=== PATIENT | female | born 1960 | race Caucasian/White ===

== ENCOUNTER 2018-03-09 14:17 | Observation (INO) ==
[2018-03-09] MEDS ORDERED: *HR* OxyCODONE/APAP 5/325 TABLET PO ONE (16:55)
[2018-03-09] MEDS ORDERED: Naloxone 0.4 MG/ML INJ IVP PRN (16:59)
[2018-03-09] MEDS: *HR* FentaNYL (PF) 100 MCG/2 ML VIAL IVP ONE (17:29)
[2018-03-09 17:57] LABS: Basophils % 0.3 %; Eosinophils # 0.1 K/mcL (0.0-0.6); Eosinophils % 1.2 %; Hematocrit 25.5 % (35.3-44.9); Hemoglobin 8.4 g/dL (11.5-15.4); Immature Granulocytes % 0.5 % (0-4); Lymphocytes # 1.9 K/mcL (0.6-4.6); Lymphocytes % 21.9 %; Mean Corpuscular HGB Conc 32.9 g/dL (31.6-35.5); Mean Corpuscular Hemoglobin 30.2 pg (28.0-33.3); Mean Corpuscular Volume 91.7 fL (83.0-100.0); Mean Platelet Volume 10.2 fL (9.4-12.4); Monocytes # 0.5 K/mcL (0.0-1.3); Monocytes % 5.7 %; Neutrophils # 6.2 K/mcL (1.6-8.9); Platelet Count 254 K/mcL (140-400); Red Blood Count 2.78 M/mcL (3.82-4.97); Red Cell Distribution Width 13.3 % (11.5-14.5); Segmented Neutrophils % 70.4 %
[2018-03-09 18:04] LABS: INR 1.1; Prothrombin Time 11.9 Seconds (9.4-12.1)
[2018-03-09 18:21] LABS: Alanine Aminotransferase 11 Units/L (7-52); Albumin 3.1 g/dL (3.5-5.7); Albumin/Globulin Ratio 1.9 (1.1-2.2); Alkaline Phosphatase 24 Units/L (34-104); Aspartate Amino Transferase 12 Units/L (13-39); BUN/Creatinine Ratio 51 (6-26); Bilirubin,Total 0.4 mg/dL (0.3-1.0); Blood Urea Nitrogen 27 mg/dL (6-20); Calcium 7.7 mg/dL (8.6-10.3); Carbon Dioxide 22 mEq/L (23-29); Chloride 115 mEq/L (98-107); Globulin 1.6 g/dL (2.4-3.5); Glucose 92 mg/dL (70-105); Magnesium 1.8 mg/dL (1.6-2.6); Osmolality,Calculated 297 (280-300); Potassium 3.7 mEq/L (3.5-5.1); Sodium 141 mEq/L (136-145); Total Protein 4.7 g/dL (6.4-8.9); eGFR For African Americans > 60 (> 60); eGFR For Non-African Americans > 60 (> 60)
[2018-03-09] MEDS ORDERED: *HR* FentaNYL (PF) 100 MCG/2 ML VIAL ONE (18:49)
[2018-03-09] MEDS ORDERED: *HR* Midazolam HCl 5 MG/5 ML VIAL IVP ONE ×2 (18:49→19:35)
[2018-03-09] MEDS: 0.9 % Sodium Chloride 500 ML IVC SCH (18:57)
[2018-03-09] MEDS ORDERED: *HR* Midazolam HCl 2 MG/2 ML VIAL IVP ONE (19:31)
[2018-03-09] MEDS ORDERED: Tetracaine/Benzocaine/Butamben 200MG/SPRAY (100SPY/BOT) MM ONE (19:31)
[2018-03-09] MEDS ORDERED: Simethicone 40 MG/0.6 ML MLS IR ONE (19:31)
[2018-03-09] MEDS ORDERED: *HR* FentaNYL (PF) 100 MCG/2 ML VIAL IVP ONE (19:31)
--- NOTE | 2018-03-09 19:31 | Pre-Sedation Evaluation ---
Pre-sedation evaluation - Pre-sedation checklist Date of procedure: 03/09/18 Recent Vitals: Last Vital Signs Temp 98.3 F 03/09/18 18:55 Pulse 91 03/09/18 18:57 Resp 18 03/09/18 18:57 BP 127/80 03/09/18 18:57 Pulse Ox 97 03/09/18 18:57 ASA Classification *see protocol: CLASS II-Mild systemic disease Plan of Care: Pt appropriate candidate for procedure/moderate/conscious sedation , Risks/benefits of procedure/sedation discussed w/ patient/family
[2018-03-09] MEDS ORDERED: SODIUM CHLORIDE/NAHCO3/KCL/PEG 4,000 ML SOLN.RECON PO ONE (20:09)
[2018-03-09] MEDS ORDERED: Acetaminophen IV 500 MG/50 ML INFUS..BTL IVPB ONE (20:45)
[2018-03-09] MEDS: 0.9 % Sodium Chloride 1,000 ML IVC SCH (21:21)
[2018-03-09] MEDS ORDERED: *HR* Promethazine 25 MG/ML VIAL IVP PRN (22:35)
--- NOTE | 2018-03-09 23:39 | Internal Med History&Physical ---
Date of Encounter: 03/09/18 Time of Encounter: 23:37 Internal Medicine - H&P: HPI Chief complaint: black stools History of present illness: Ms. Meza is a 57 year old female with history of migraines who presents to complain of black stool. Patient notes she had a episode of loss of consciousness. Patient notes prior to the episode she denied chest pain, shortness of breath or palpitations. Patient notes that throughout the day she has been having black stool. Patient also notes some epigastric discomfort. Patient notes that she has been taking Excedrin for history of migraines diagnosed approximately 2 months ago. At this time patient denies chest pain shortness breath or palpitations. Patient complains of headache but this is similar to her prior migraines. This time he denies visual disturbance or focal weakness. She denies fever, chills or rigors. Patient notes some black stool. At this time she denies rectal pain. Patient to be admitted for further evaluation. Patient denies any other complaint Past Med Surg Social Fam HX - Past Medical History Medical history: GERD, migraine Psychiatric history: no psych history - Social History Smoking Status: Current some day smoker Packs per day: 0.25 Smokeless Tobacco Status: No Alcohol use: rarely Drug use: none - Family History Mother Living Status: Age at : 63 Cause of : Alzheimers Father Living Status: Still Living Hx Family Cardiac Disorders: No Hx Family Respiratory Disorders: Yes (COPD) Hx Family Cancer: Yes (Breast cancer) Internal Medicine - H&P: Meds 3 Allergy/AdvReac Type Severity Reaction Status Date / Time morphine AdvReac Hallucinati Verified 03/09/18 10:36 ng All Systems PM: A 10-system review of systems was performed and is negative for pertinent findings except as documented above in the HPI. Review of systems: All systems reviewed and negative except as mentioned in history of present illness - Constitutional Vitals: Temp Pulse Resp BP Pulse Ox 98.2 F 84 15 112/73 99 03/09/18 20:48 03/09/18 20:48 03/09/18 20:48 03/09/18 20:48 03/09/18 20:48 Vital signs reviewed above Gen.: Able speak in full sentences, no conversational dyspnea HEENT: Stitches noted left-sided, normocephalic, electrical Zantac, there is no scleral icterus Neck: No JVD appended palpation, full range of motion Heart: Normal S1-S2 Lungs: Clear Abdomen: Soft, depressible, nontender, nondistended, positive bowel sounds, no guarding, no rigidity Musculoskeletal: Patient moves all 4 extremities freely, pending the palpation of large joints Neuro: Nonfocal patient moves all 4 extremities freely, no pain with palpation of large joints Psychiatric: Normal affect Skin: Intact Internal Med - H&P Results - Labs CBC & Chem 7: 03/09/18 17:35 03/09/18 17:35 Labs: Short CBC 03/09/18 Range/Units 17:35 WBC 8.8 (4.3-11.1) K/mcL Hgb 8.4 L (11.5-15.4) g/dL Hct 25.5 L (35.3-44.9) % Plt Count 254 (140-400) K/mcL Neutrophils # 6.2 (1.6-8.9) K/mcL BMP 03/09/18 17:35 Sodium 141 Potassium 3.7 Chloride 115 H Carbon Dioxide 22 L BUN 27 H Creatinine 0.53 L Glucose 92 Calcium 7.7 L Liver Function 03/09/18 Range/Units 17:35 Total Bilirubin 0.4 (0.3-1.0) mg/dL AST 12 L (13-39) Units/L ALT 11 (7-52) Units/L Alkaline Phosphatase 24 L (34-104) Units/L Albumin 3.1 L (3.5-5.7) g/dL - Assessment and plan (1) Anemia Current Visit: No Status: Acute Assessment and plan: Black stool Patient status post EGD shows evidence of esophagitis, gastritis Protonix twice a day Possible colonoscopy in the a.m. Appreciate GI consultation Qualifiers: Anemia type: other cause Other causes of anemia: acute posthemorrhagic Qualified Code(s): D62 - Acute posthemorrhagic anemia (2) Syncope Current Visit: No Status: Acute Assessment and plan: Episodes of loss of causes in the setting of anemia, black stool gastrointestinal bleed Patient denied any prodromal symptoms, patient denies chest pain, Records from outside hospital to be obtained Repeat CBC, trend troponin Neuro checks Qualifiers: Syncope type: unspecified Qualified Code(s): R55 - Syncope and collapse (3) Migraine Current Visit: Yes Status: Acute Assessment and plan: Previous history of migraine No NSAIDs at this time Patient will require PCP follow-up Qualifiers: Qualified Code(s): G43.909 - Migraine, unspecified, not intractable, without status migrainosus (4) DVT prophylaxis Current Visit: Yes Status: Acute Assessment and plan: SCD's - Time Spent With Patient Total time spent is greater than 50% in coordination of care (as documented) at patient's floor/unit and/or counseling patient:
[2018-03-10 01:07] LABS: Basophils % 0.3 %; Eosinophils # 0.2 K/mcL (0.0-0.6); Eosinophils % 2.2 %; Hematocrit 23.5 % (35.3-44.9); Hemoglobin 7.4 g/dL (11.5-15.4); Immature Granulocytes % 0.4 % (0-4); Lymphocytes # 1.2 K/mcL (0.6-4.6); Lymphocytes % 15.5 %; Mean Corpuscular HGB Conc 31.5 g/dL (31.6-35.5); Mean Corpuscular Volume 92.2 fL (83.0-100.0); Mean Platelet Volume 10.5 fL (9.4-12.4); Monocytes # 0.5 K/mcL (0.0-1.3); Monocytes % 6.2 %; Neutrophils # 5.6 K/mcL (1.6-8.9); Platelet Count 202 K/mcL (140-400); Red Blood Count 2.55 M/mcL (3.82-4.97); Red Cell Distribution Width 13.4 % (11.5-14.5); Segmented Neutrophils % 75.4 %
[2018-03-10 01:26] LABS: Alanine Aminotransferase 11 Units/L (7-52); Albumin 2.9 g/dL (3.5-5.7); Albumin/Globulin Ratio 1.8 (1.1-2.2); Alkaline Phosphatase 21 Units/L (34-104); Aspartate Amino Transferase 13 Units/L (13-39); BUN/Creatinine Ratio 37 (6-26); Bilirubin,Total 0.3 mg/dL (0.3-1.0); Blood Urea Nitrogen 23 mg/dL (6-20); Calcium 7.6 mg/dL (8.6-10.3); Carbon Dioxide 20 mEq/L (23-29); Chloride 115 mEq/L (98-107); Chol/HDL Ratio 2.9 (0-4.9); Cholesterol 107 mg/dL (< 200); Globulin 1.6 g/dL (2.4-3.5); Glucose 96 mg/dL (70-105); HDL Cholesterol 37 mg/dL (40-59); LDL Cholesterol,Calculated 47 mg/dL (0-99); Osmolality,Calculated 296 (280-300); Potassium 3.8 mEq/L (3.5-5.1); Sodium 141 mEq/L (136-145); Total Protein 4.5 g/dL (6.4-8.9); Triglycerides 114 mg/dL (< 150); eGFR For African Americans > 60 (> 60); eGFR For Non-African Americans > 60 (> 60)
[2018-03-10] MEDS: Pantoprazole 40 MG VIAL IVP SCH ×2 (05:27→18:03)
[2018-03-10] MEDS ORDERED: 0.9 % Sodium Chloride 250 ML ONE (07:55)
--- NOTE | 2018-03-10 09:38 | Internal Med Progress Note ---
<Gagan Vallejo - Last Filed: 03/10/18 11:48> Date of Encounter: 03/10/18 Time of Encounter: 09:38 - Assessment and plan (1) Syncope Current Visit: No Status: Inactive Assessment and plan: Episodes of loss of causes in the setting of anemia, black stool gastrointestinal bleed and lightheadedness and feeling weak. Patient hit her head with scalp laceration on the left scalp - Head CT performed at [place] was without any acute intracranial changes - Hemoglobin dropped from 9-7.4 overnight Suspect the setting of acute blood loss anemia. - Currently clinically stable. Plan : - Neuro checks - Monitor hemoglobin - Colonoscopy for further evaluation. Qualifiers: Syncope type: unspecified Qualified Code(s): R55 - Syncope and collapse (2) Anemia Current Visit: No Status: Inactive Assessment and plan: Black stool Patient status post EGD shows evidence of large hiatal hernia, esophagitis, gastritis Protonix twice a day - Hemoglobin 7.4, currently receiving 1 unit PRBC transfusion Patient scheduled for colonoscopy this afternoon Appreciate GI consultation Qualifiers: Anemia type: other cause Other causes of anemia: acute posthemorrhagic Qualified Code(s): D62 - Acute posthemorrhagic anemia (3) Migraine Current Visit: Yes Status: Acute Assessment and plan: Previous history of migraine, tension headaches No NSAIDs at this time Patient will require PCP follow-up - Consider low-dose amitriptyline as headaches are more likely tension headaches given description. (4) Large hiatal hernia Current Visit: Yes Status: Acute Assessment and plan: Large hiatal hernia seen on EGD - Patient knows of previous diagnosis and states she had complications in the past. (5) Esophagitis Current Visit: Yes Status: Acute Assessment and plan: Seen on EGD - Continue Protonix twice a day - Consider Carafate will discuss with gastroenterology (6) DVT prophylaxis Current Visit: Yes Status: Acute Assessment and plan: SCD's (7) Gastritis Current Visit: Yes Status: Acute Assessment and plan: Seen on EGD. - Continue Protonix twice a day -We will discuss Carafate with gastroenterology - Time Spent With Patient Total time spent is greater than 50% in coordination of care (as documented) at patient's floor/unit and/or counseling patient: - Subjective Interval history: Mrs. Meza 57-year-old female seen and evaluated patient bedside this morning. She had EGD performed last evening with findings of esophagitis and gastritis and large hiatal hernia. In discussion this morning she is doing well denies any abdominal pain, nausea vomiting diarrhea constipation, fevers chills or sweating. Denies any syncopal or near syncopal events denies any lightheadedness or dizziness. She states that prior to presenting to the emergency department she became very lightheaded was having dark tarry stools passed out and hit her left side of her head resulting in a laceration. She is brought to the emergency department received jessy in her head and underwent head CT which was without significant findings. She was then transferred to [facility] and admitted to the hospital service. She underwent EGD with the findings as mentioned above. In started on PPI. Today she denies any new symptoms or concerns overnight. She wanted discussion regarding what findings were there may have caused it. She states that she stopped taking her PPI with a history of gastritis roughly a year ago and started having headaches after being told she had the flu in November. For the last 2 weeks she took Excedrin Migraine twice a day and started having epigastric discomfort. She states she aware of her large hiatal hernia because years ago she had complications and underwent emergent surgery with revision. She denies any complications or recent abdominal surgeries. - Constitutional Vitals: Temp Pulse Resp BP Pulse Ox 98.1 F 90 16 124/85 98 03/10/18 09:02 03/10/18 09:02 03/10/18 09:02 03/10/18 09:02 03/10/18 09:02 Exam: General: Patient alert, awake, oriented 3, interactive, in no acute distress HEENT: Normocephalic, 1cm lac on left parital scalp with 3 jessy, no drainage or erythema. pupils equal reactive to light, moist mucous membranes, neck supple trachea midline no palpable lymphadenopathy, no thyromegaly. Chest: Symmetric bilateral correlating with respiratory effort, effort nonlabored. Cardiac: Regular rate and rhythm, positive S1 and S2. no bruits appreciated bilateral carotids, Radial pulses 2+ bilateral, posterior tibial and dorsal pedal pulses 2+ bilateral. Respiratory: Clear to auscultation all lung cohn Abdomen: Soft, nontender, positive bowel sounds, no palpable masses appreciated on examination Extremities: Symmetric bilateral, bilateral lower extremities without erythema or edema patient moving all 4 extremities spontaneously. Neurologic: No focal deficits appreciated on examination. Face symmetric, muscle strength symmetric bilateral upper and lower extremities. Internal Medicine: Result - Labs CBC & Chem 7: 03/10/18 00:11 03/10/18 00:11 Labs: Short CBC 03/09/18 03/10/18 Range/Units 17:35 00:11 WBC 8.8 7.4 (4.3-11.1) K/mcL Hgb 8.4 L 7.4 L (11.5-15.4) g/dL Hct 25.5 L 23.5 L (35.3-44.9) % Plt Count 254 202 (140-400) K/mcL Neutrophils # 6.2 5.6 (1.6-8.9) K/mcL BMP 03/09/18 03/10/18 17:35 00:11 Sodium 141 141 Potassium 3.7 3.8 Chloride 115 H 115 H Carbon Dioxide 22 L 20 L BUN 27 H 23 H Creatinine 0.53 L 0.62 Glucose 92 96 Calcium 7.7 L 7.6 L Cardiac Enzymes 03/10/18 Range/Units 00:11 Troponin I < 0.03 (< 0.04) ng/mL Liver Function 03/09/18 03/10/18 Range/Units 17:35 00:11 Total Bilirubin 0.4 0.3 (0.3-1.0) mg/dL AST 12 L 13 (13-39) Units/L ALT 11 11 (7-52) Units/L Alkaline Phosphatase 24 L 21 L (34-104) Units/L Albumin 3.1 L 2.9 L (3.5-5.7) g/dL - ABG Interpretation ABG results: PT/INR, D-dimer PT 11.9 Seconds (9.4-12.1) 03/09/18 17:35 Consult Discharge Plan - Plan Referrals: Frank Clancy MD [Primary Care Provider] - <Krzysztof Castro - Last Filed: 03/10/18 16:09> Date of Encounter: 03/10/18 - Assessment and plan (1) Syncope Current Visit: No Status: Inactive Qualifiers: Syncope type: unspecified Qualified Code(s): R55 - Syncope and collapse (2) Anemia Current Visit: No Status: Inactive Qualifiers: Anemia type: other cause Other causes of anemia: acute posthemorrhagic Qualified Code(s): D62 - Acute posthemorrhagic anemia (3) Migraine Current Visit: Yes Status: Acute (4) DVT prophylaxis Current Visit: Yes Status: Acute (5) Large hiatal hernia Current Visit: Yes Status: Acute (6) Esophagitis Current Visit: Yes Status: Acute (7) Gastritis Current Visit: Yes Status: Acute Qualifiers: Gastritis type: unspecified gastritis Chronicity: unspecified Gastritis bleeding: without bleeding Qualified Code(s): K29.70 - Gastritis, unspecified , without bleeding - Time Spent With Patient Total time spent is greater than 50% in coordination of care (as documented) at patient's floor/unit and/or counseling patient: - Constitutional Vitals: Temp Pulse Resp BP Pulse Ox 98.2 F 82 16 106/68 96 03/10/18 14:36 03/10/18 14:36 03/10/18 14:36 03/10/18 14:36 03/10/18 14:36 Internal Medicine: Result - Labs CBC & Chem 7: 03/10/18 14:44 03/10/18 00:11 Labs: Short CBC 03/09/18 03/10/18 03/10/18 Range/Units 17:35 00:11 14:44 WBC 8.8 7.4 (4.3-11.1) K/mcL Hgb 8.4 L 7.4 L 7.8 L (11.5-15.4) g/dL Hct 25.5 L 23.5 L 23.9 L (35.3-44.9) % Plt Count 254 202 (140-400) K/mcL Neutrophils # 6.2 5.6 (1.6-8.9) K/mcL BMP 03/09/18 03/10/18 17:35 00:11 Sodium 141 141 Potassium 3.7 3.8 Chloride 115 H 115 H Carbon Dioxide 22 L 20 L BUN 27 H 23 H Creatinine 0.53 L 0.62 Glucose 92 96 Calcium 7.7 L 7.6 L Cardiac Enzymes 03/10/18 Range/Units 00:11 Troponin I < 0.03 (< 0.04) ng/mL Liver Function 03/09/18 03/10/18 Range/Units 17:35 00:11 Total Bilirubin 0.4 0.3 (0.3-1.0) mg/dL AST 12 L 13 (13-39) Units/L ALT 11 11 (7-52) Units/L Alkaline Phosphatase 24 L 21 L (34-104) Units/L Albumin 3.1 L 2.9 L (3.5-5.7) g/dL - ABG Interpretation ABG results: PT/INR, D-dimer PT 11.9 Seconds (9.4-12.1) 03/09/18 17:35 - Attending Attestation Syncopal episode secondary to symptomatic anemia/due to upper GI bleed, acute gastritis and acute esophagitis Status post 1 unit of blood Protonix IV Recheck H&H tonight, CBC in the morning consider further transfusions I examined this patient and my medical decision-making was reviewed with the Resident Physician. I agree with the documented findings, disposition and treatment plan as described except to the extent set forth below.
--- NOTE | 2018-03-10 12:03 | Gastroenterology Consult Note ---
<ReichDanny zavala Joie - Last Filed: 03/10/18 12:01> Date of Encounter: 03/10/18 Time of Encounter: 10:20 - Assessment and plan (1) Anemia Current Visit: Yes Status: Acute Assessment and plan: Hgb on admission was 9.1 and this AM Hgb 7.4. EGD completed yesterday, no source of bleeding noted. Plan for colonoscopy today. Qualifiers: Anemia type: unspecified type Qualified Code(s): D64.9 - Anemia, unspecified (2) Esophagitis Current Visit: Yes Status: Acute Assessment and plan: LA Grade D reflux esophagitis noted on EGD. Recommend BID PPI and Carafate liquid TID. Repeat EGD in 2 months. Follow up in GI office in 4 weeks. Patient educated regarding lifestyle modifications including: (1) avoidance of foods that may precipitate reflux (eg, coffee, alcohol, chocolate, fatty foods) . (2) avoidance of acidic foods that may precipitate heartburn (eg, citrus, carbonated drinks, spicy foods). (3) adoption of behaviors that may reduce esophageal acid exposure (see weight loss, smoking cessation, raising the head of the bed, and avoiding recumbency for 2-3 hours after meals). (3) Large hiatal hernia Current Visit: Yes Status: Acute (4) Gastritis Current Visit: Yes Status: Acute Qualifiers: Gastritis type: unspecified gastritis Chronicity: unspecified Gastritis bleeding: without bleeding Qualified Code(s): K29.70 - Gastritis, unspecified , without bleeding - Time Spent With Patient Total time spent is greater than 50% in coordination of care (as documented) at patient's floor/unit and/or counseling patient: GI History of Present Illness - Data of Consult Patient: new to practice Consult date: 03/10/18 Requesting Physician: Krzysztof Castro - Consult Narrative Reason for consult: melena History of present illness: Ms. Meza is a 57 year old female with PMHx of GERD and migraines who presented to the ED with complaints of black stool and syncopal episode. She reports having black stool that started the day prior to admission. Hgb on admission was 9.1 and this AM Hgb 7.4. She denies fever, chills, chest pain, shortness of breath, rectal pain, hematochezia. She complains of epigastric pain , and has been taking Excedrin for her migraines for the past 2 months. Procedures: None NSAIDs: Excedrin Anticoagulation: None Past Med Surg Social Fam HX - Past Medical History Medical history: GERD, migraine Psychiatric history: no psych history - Social History Smoking Status: Current some day smoker Packs per day: 0.25 Smokeless Tobacco Status: No Alcohol use: rarely Drug use: none - Family History Mother Living Status: Age at : 63 Cause of : Alzheimers Father Living Status: Still Living Hx Family Cardiac Disorders: No Hx Family Respiratory Disorders: Yes (COPD) Hx Family Cancer: Yes (Breast cancer) - Gastrointestinal Gastrointestinal: Present: as per HPI - Constitutional Constitutional: as per HPI - EENT Eyes: as per HPI Ears: Present: as per HPI Nose, mouth and throat: Present: as per HPI - Cardiovascular Cardiovascular ROS: Present: as per HPI - Respiratory Respiratory IM: Present: as per HPI - Genitourinary Genitourinary: Absent: change in color, Urinary frequency - Neurological ROS Neurological GI: Present: as per HPI - Hematologic/Lymphatic Hematologic/Lymphatic pediatric: Present: as per HPI - Musculoskeletal Musculoskeletal ROS GI: Present: as per HPI - Integumentary Integumentary GI: Present: as per HPI - Psychiatric ROS Psychiatric GI: Present: as per HPI - Endocrine Endocrine IM: Present: as per HPI - Constitutional Vitals: Temp Pulse Resp BP Pulse Ox 98.2 F 92 16 123/83 99 03/10/18 11:39 03/10/18 11:39 03/10/18 11:39 03/10/18 11:39 03/10/18 11:39 General appearance: Present: cooperative, A&O X 3, no acute distress, answers questions appropriately - Head Head exam: Present: atraumatic, normocephalic - Eye Eye exam: Present: normal appearance, sclera anicteric - ENT ENT exam: Present: mucous membranes dry - Neck Neck exam general surgery: Present: normal inspection, trachea midline - Respiratory Respiratory exam: Present: CTAB. Absent: rales, rhonchi - Cardiovascular Cardiovascular exam: Present: RRR, +S1, +S2 - GI/Abdominal GI/Abdominal exam: Present: soft, no peritoneal signs. Absent: distended, firm , guarding, tenderness - Rectal Rectal exam: Present: deferred - Extremities Exam Extremities exam: Present: warm - Neurological Exam Neurological exam: Present: no focal deficits - Psychiatric Psychiatric exam: Present: normal affect, normal mood - Skin Skin exam: Present: dry, intact, normal color, warm Results - Labs CBC & Chem 7: 03/10/18 00:11 03/10/18 00:11 Labs: Last Result Calcium 7.6 mg/dL (8.6-10.3) L 03/10/18 00:11 Troponin I < 0.03 ng/mL (< 0.04) 03/10/18 00:11 Triglycerides 114 mg/dL (< 150) 03/10/18 00:11 Entire Visit Hgb 7.4 g/dL (11.5-15.4) L 03/10/18 00:11 Hct 23.5 % (35.3-44.9) L 03/10/18 00:11 PT 11.9 Seconds (9.4-12.1) 03/09/18 17:35 Total Bilirubin 0.3 mg/dL (0.3-1.0) 03/10/18 00:11 AST 13 Units/L (13-39) 03/10/18 00:11 ALT 11 Units/L (7-52) 03/10/18 00:11 - ABG ABG results: PT/INR, D-dimer PT 11.9 Seconds (9.4-12.1) 03/09/18 17:35 Consult Discharge Plan - Plan Referrals: Frank Clancy MD [Primary Care Provider] - <James Banks - Last Filed: 03/10/18 23:44> Date of Encounter: 03/10/18 Time of Encounter: 13:30 - Time Spent With Patient Total time spent is greater than 50% in coordination of care (as documented) at patient's floor/unit and/or counseling patient: GI History of Present Illness - Data of Consult Requesting Physician: Krzysztof Castro - Consult Narrative History of present illness: Ms. Meza is a 57 year old female - Constitutional Vitals: Temp Pulse Resp BP Pulse Ox 97.8 F 92 16 104/68 98 03/10/18 19:45 03/10/18 19:45 03/10/18 19:45 03/10/18 19:45 03/10/18 19:45 Results - Labs CBC & Chem 7: 03/10/18 22:02 03/10/18 00:11 Labs: Last Result Calcium 7.6 mg/dL (8.6-10.3) L 03/10/18 00:11 Troponin I < 0.03 ng/mL (< 0.04) 03/10/18 00:11 Triglycerides 114 mg/dL (< 150) 03/10/18 00:11 Entire Visit Hgb 7.9 g/dL (11.5-15.4) L 03/10/18 22:02 Hct 23.7 % (35.3-44.9) L 03/10/18 22:02 PT 11.9 Seconds (9.4-12.1) 03/09/18 17:35 Total Bilirubin 0.3 mg/dL (0.3-1.0) 03/10/18 00:11 AST 13 Units/L (13-39) 03/10/18 00:11 ALT 11 Units/L (7-52) 03/10/18 00:11 - ABG ABG results: PT/INR, D-dimer PT 11.9 Seconds (9.4-12.1) 03/09/18 17:35 - Attending Attestation I have personally performed a face to face evaluation on this patient. I have reviewed and agree with the care plan. History and Exam by me shows: Pt seen. Pt with melena with anemia. Takes excedrin. EGD with erosive esophagitis Rec: colon today
[2018-03-10] MEDS ORDERED: *HR* FentaNYL (PF) 100 MCG/2 ML VIAL ONE (13:15)
[2018-03-10] MEDS ORDERED: *HR* Midazolam HCl 5 MG/5 ML VIAL IVP ONE ×2 (13:15→13:46)
[2018-03-10] MEDS ORDERED: Simethicone 40 MG/0.6 ML MLS IR ONE (13:46)
[2018-03-10] MEDS ORDERED: *HR* FentaNYL (PF) 100 MCG/2 ML VIAL IVP ONE (13:46)
[2018-03-10] MEDS: *HR* FentaNYL (PF) 100 MCG/2 ML VIAL IVP ONE (13:59)
[2018-03-10] MEDS: 0.9 % Sodium Chloride 500 ML IVC SCH (14:32)
[2018-03-10 15:12] LABS: Hematocrit 23.9 % (35.3-44.9); Hemoglobin 7.8 g/dL (11.5-15.4)
[2018-03-10] MEDS: traMADol 50 MG TABLET PO PRN (19:48)
[2018-03-10] MEDS: 0.9 % Sodium Chloride 1,000 ML IVC SCH (20:55)
[2018-03-10 22:11] LABS: Hematocrit 23.7 % (35.3-44.9); Hemoglobin 7.9 g/dL (11.5-15.4)
--- NOTE | 2018-03-10 23:22 | Event Note ---
Date of Encounter: 03/10/18 Time of Encounter: 23:10 Alerted by patient's nurse the patient had received 1 unit of PRBCs today and H& H was redrawn and found to be 7.9. Patient's Hgb 9.1 on admission, 8.4 on 03/09 , 7.4 on 03/10 and 7.8 after PRBCs on 03/10. Colonoscopy performed today showed gastrointestinal hemorrhage, melena, and diverticulosis of large intestine without perforation or abscess without bleeding. Timed H&H ordered to began at 02:00 on 03/11. 2 units PRBCs ordered d/t pts. Hgb <8.0. 20 mg of IVP lasix ordered to be administered one time after each unit of PRBCs w/order to monitor pt. for peripheral edema. Will continue to monitor pts. H/H x4.
[2018-03-11] MEDS ORDERED: 0.9 % Sodium Chloride 250 ML ONE ×2 (01:49→09:00)
[2018-03-11 02:05] LABS: Hematocrit 23.4 % (35.3-44.9); Hemoglobin 7.5 g/dL (11.5-15.4); Immature Granulocytes % 0.3 % (0-4); Lymphocytes % 25.4 %; Mean Corpuscular HGB Conc 32.1 g/dL (31.6-35.5); Mean Corpuscular Volume 90.3 fL (83.0-100.0); Mean Platelet Volume 10.3 fL (9.4-12.4); Platelet Count 204 K/mcL (140-400); Red Blood Count 2.59 M/mcL (3.82-4.97); Red Cell Distribution Width 13.3 % (11.5-14.5)
[2018-03-11 02:06] LABS: Basophils % 0.5 %; Eosinophils # 0.2 K/mcL (0.0-0.6); Eosinophils % 4.1 %; Lymphocytes # 1.5 K/mcL (0.6-4.6); Monocytes # 0.3 K/mcL (0.0-1.3); Monocytes % 5.7 %; Neutrophils # 3.7 K/mcL (1.6-8.9)
[2018-03-11 02:26] LABS: Alanine Aminotransferase 10 Units/L (7-52); Albumin 2.7 g/dL (3.5-5.7); Albumin/Globulin Ratio 1.8 (1.1-2.2); Alkaline Phosphatase 23 Units/L (34-104); Aspartate Amino Transferase 11 Units/L (13-39); BUN/Creatinine Ratio 22 (6-26); Bilirubin,Total 0.2 mg/dL (0.3-1.0); Blood Urea Nitrogen 11 mg/dL (6-20); Calcium 7.6 mg/dL (8.6-10.3); Carbon Dioxide 24 mEq/L (23-29); Chloride 114 mEq/L (98-107); Globulin 1.5 g/dL (2.4-3.5); Glucose 89 mg/dL (70-105); Osmolality,Calculated 291 (280-300); Potassium 3.9 mEq/L (3.5-5.1); Sodium 141 mEq/L (136-145); Total Protein 4.2 g/dL (6.4-8.9); eGFR For African Americans > 60 (> 60); eGFR For Non-African Americans > 60 (> 60)
[2018-03-11] MEDS: Pantoprazole 40 MG VIAL IVP SCH (05:07)
[2018-03-11] MEDS: Furosemide 20 MG/2 ML VIAL IVP PRN ×2 (05:07→12:05)
[2018-03-11] MEDS: traMADol 50 MG TABLET PO PRN (05:16)
[2018-03-11 09:38] LABS: Hematocrit 29.2 % (35.3-44.9)
[2018-03-11 09:41] LABS: Hemoglobin 9.9 g/dL (11.5-15.4)
[2018-03-11 11:52] VITALS: BP 124/77
[2018-03-11 14:21] LABS: Hematocrit 32.9 % (35.3-44.9); Hemoglobin 11.2 g/dL (11.5-15.4)
--- NOTE | 2018-03-11 14:48 | Discharge Summary ---
<Gagan Vallejo - Last Filed: 03/11/18 15:44> Orders not resulted at time of discharge: Pending orders 03/09/18 19:43 Surgical Pathology [PTH] Routine Date of Encounter: 03/11/18 Time of Encounter: 07:30 - Discharge Diagnosis (1) Syncope Priority: Primary Status: Inactive Qualifiers: Syncope type: unspecified Qualified Code(s): R55 - Syncope and collapse (2) Anemia Priority: Primary Status: Inactive Qualifiers: Anemia type: other cause Other causes of anemia: acute posthemorrhagic Qualified Code(s): D62 - Acute posthemorrhagic anemia (3) Migraine Priority: Secondary Status: Acute (4) Large hiatal hernia Priority: Secondary Status: Acute (5) Esophagitis Priority: Primary Status: Acute (6) DVT prophylaxis Priority: Secondary Status: Acute (7) Gastritis Priority: Primary Status: Acute Qualifiers: Gastritis type: unspecified gastritis Chronicity: unspecified Gastritis bleeding: without bleeding Qualified Code(s): K29.70 - Gastritis, unspecified , without bleeding Hospital course: Ms. Meza is a 57 year old female with hx of large hiatal hernia, previous abdominal surgeries, GERD, migraines presented to the emergency department at [place] after a syncope episode with head trauma and black tar like stools. She states that prior to presenting to the emergency department she became very lightheaded was having dark tarry stools passed out and hit her left side of her head resulting in a laceration. She is brought to the emergency department received jessy in her left side of her head and underwent head CT which was without significant findings. She was then transferred to [facility] and admitted to the hospital service. She underwent EGD with the findings of Grade D esophagitis, gastritis with biopsies and large hiatal hernia, she was given IV Protonix BID and started on IV fluids. recommend repeat EGD in 2 months. She received a total of 3units PRBCs during her inpatient stay. Underwent colonoscopy with findings of diverticulosis in the sigmoid colon, blood in the entire examination and blood in the terminal ileum. Recommended repeat colonoscopy in 1 year. She remained stable for the remainder of her hospital stay and was evaluated at bedside on 03/11 and deemed stable for discharge home. Vitals remained stable through hospital stay. Hgb at the time of discharge is 11.2. Lengthy discussion regarding results, recommendations , prescriptions and foods/med to avoid were had with her and her . - Time Spent with Patient Total time spent providing and/or coordinating discharge services: - Discharge Medications Prescriptions: Omeprazole [PriLOSEC] 40 mg PO BID 30 Days #60 cap Sucralfate [Carafate] 1 gm PO TIDAC 30 Days #1 bottle Home Medications: Omeprazole [PriLOSEC] 40 mg PO BID 30 Days #60 cap 03/11/18 [Rx] Sucralfate [Carafate] 1 gm PO TIDAC 30 Days #1 bottle 03/11/18 [Rx] Allergies/Adverse Reactions: 3 Allergy/AdvReac Type Severity Reaction Status Date / Time morphine AdvReac Hallucinati Verified 03/09/18 10:36 ng Date of admission: 03/09/18 16:03 Primary care physician: Frank Clancy MD Discharging clinician: Gagan Vallejo Anticipated date of discharge: 03/11/18 - Constitutional Vitals: Temp Pulse Resp BP Pulse Ox 97.7 F 83 18 124/77 97 03/11/18 11:51 03/11/18 11:51 03/11/18 11:51 03/11/18 11:51 03/11/18 09:30 Exam: General: Patient alert, awake, oriented 3, interactive, in no acute distress HEENT: Normocephalic, 1cm lac on left parital scalp with 3 jessy, no drainage or erythema. pupils equal reactive to light, moist mucous membranes, neck supple trachea midline no palpable lymphadenopathy, no thyromegaly. Chest: Symmetric bilateral correlating with respiratory effort, effort nonlabored. Cardiac: Regular rate and rhythm, positive S1 and S2. no bruits appreciated bilateral carotids, Radial pulses 2+ bilateral, posterior tibial and dorsal pedal pulses 2+ bilateral. Respiratory: Clear to auscultation all lung cohn Abdomen: Soft, nontender, positive bowel sounds, no palpable masses appreciated on examination Extremities: Symmetric bilateral, bilateral lower extremities without erythema or edema patient moving all 4 extremities spontaneously. Neurologic: No focal deficits appreciated on examination. Face symmetric, muscle strength symmetric bilateral upper and lower extremities. - Patient Status Disposition: Home, Self-Care Condition: Good Functional capacity at discharge: independent ambulation Overall status at discharge: patient is progressing back to baseline - Discharge Instructions Instructions: Laceration (DC), Anemia (DC) Follow Up With: James Banks MD [Partnered Physician] - Frank Clancy MD [Primary Care Provider] - Additional Instructions: Take medications as prescribed Follow up with PCP in the next 3-5 days evaluation and discussion regarding jessy in left scalp Follow up with GI in the next week for re-evaluation of GI bleed Take medications as prescribed. Recommendations: LA Grade D reflux esophagitis noted on EGD. Recommend BID PPI and Carafate liquid TID. Repeat EGD in 2 months. Follow up in GI office in 4 weeks. Patient educated regarding lifestyle modifications including: (1) avoidance of foods that may precipitate reflux (eg, coffee, alcohol, chocolate, fatty foods) . (2) avoidance of acidic foods that may precipitate heartburn (eg, citrus, carbonated drinks, spicy foods). (3) adoption of behaviors that may reduce esophageal acid exposure (see weight loss, smoking cessation, raising the head of the bed, and avoiding recumbency for 2-3 hours after meals). Repeat colonoscopy in 1 year per gastroenterology - Diet and Activity Activity: increase activity as tolerated Diet: advance to your usual diet <Krzysztof Castro - Last Filed: 03/11/18 16:31> Orders not resulted at time of discharge: Pending orders 03/09/18 19:43 Surgical Pathology [PTH] Routine Date of Encounter: 03/11/18 - Discharge Diagnosis (1) Syncope Status: Inactive Qualifiers: Syncope type: unspecified Qualified Code(s): R55 - Syncope and collapse (2) Anemia Status: Inactive Qualifiers: Anemia type: other cause Other causes of anemia: acute posthemorrhagic Qualified Code(s): D62 - Acute posthemorrhagic anemia (3) Migraine Status: Acute (4) DVT prophylaxis Status: Acute (5) Large hiatal hernia Status: Acute (6) Esophagitis Status: Acute (7) Gastritis Status: Acute Qualifiers: Gastritis type: unspecified gastritis Chronicity: unspecified Gastritis bleeding: without bleeding Qualified Code(s): K29.70 - Gastritis, unspecified , without bleeding Hospital course: Ms. Meza is a 57 year old female - Time Spent with Patient Total time spent providing and/or coordinating discharge services: Date of admission: 03/09/18 16:03 Primary care physician: Frank Clancy MD - Constitutional Vitals: Temp Pulse Resp BP Pulse Ox 97.7 F 83 18 124/77 97 03/11/18 11:51 03/11/18 11:51 03/11/18 11:51 03/11/18 11:51 03/11/18 09:30 - Attending Attestation Syncopal episode secondary to symptomatic anemia/due to upper GI bleed, acute gastritis and acute esophagitis Status post blood transfusions was given the option to stay another day but prefers to be discharged home time spent 40 min I examined this patient and my medical decision-making was reviewed with the Resident Physician. I agree with the documented findings, disposition and treatment plan as described except to the extent set forth below.
== END 2018-03-11 15:00 | disposition home or self-care (01) ==
LOC: 3ANU
PROVIDERS: ADMIT Internal Medicine; ATTEND Internal Medicine
PROC: ENDOEBX (2018-03-09 19:00)